=== PATIENT | female | born 1980 | race Caucasian/White ===

== ENCOUNTER 2016-12-26 15:11 | Emergency (ER) | payer SELFPAY ==
[~2016-12-26] VITALS: Ht 152.4 cm; Wt 57.4 kg
[2016-12-26 15:15] VITALS: BP 121/87
== END 2016-12-26 16:28 | disposition home or self-care (01) ==
LOC: ED 16:09
DX: L02.01 Cutaneous abscess of face (principal); Z90.710 Acquired absence of both cervix and uterus
CPT/HCPCS: 10160; 99283

== ENCOUNTER 2017-06-11 13:51 | Emergency (ER) | payer OTHER ==
[~2017-06-11] VITALS: Ht 157.5 cm; Wt 55.4 kg
[2017-06-11] MEDS ORDERED: HYDROmorphone 1 MG/ML, 1ML IM ONE (15:30)
[2017-06-11] MEDS ORDERED: ONDANSETRON ODT 4 MG PO ONE (15:30)
[2017-06-11] MEDS ORDERED: KETOROLAC 30 MG/1 ML IM ONE (15:30)
[2017-06-11] MEDS ORDERED: ONDANSETRON ODT 4 MG ONE (15:38)
[2017-06-11] MEDS ORDERED: KETOROLAC 30 MG/1 ML ONE (15:38)
[2017-06-11] MEDS ORDERED: HYDROmorphone 1 MG/ML, 1ML ONE (15:38)
[2017-06-11 15:51] LABS: HEMATOCRIT 40.4 % (34.6-47.8); HEMOGLOBIN 13.4 g/dL (11.7-16.4); WHITE BLOOD COUNT 6.2 x10^3/uL (3.4-10)
[2017-06-11 16:02] LABS: BLOOD UREA NITROGEN 15 mg/dL (7-18)
[2017-06-11 16:51] VITALS: BP 112/74
== END 2017-06-11 17:28 | disposition home or self-care (01) ==
LOC: ED 17:22
DX: N20.0 Calculus of kidney (principal); Z90.710 Acquired absence of both cervix and uterus
CPT/HCPCS: 36415; 74176; 80048; 81001; 82040; 85025; 87086; 96372; 99285; J1170; J1885; Q0162

== ENCOUNTER 2017-07-07 14:52 | Emergency (ER) | payer MEDICAID, OTHER ==
[~2017-07-07] VITALS: Ht 157.5 cm; Wt 56.2 kg
[2017-07-07 14:55] VITALS: BP 132/90
[2017-07-07] MEDS ORDERED: LIDOCAINE 1%, 20ML ONE (15:11)
[2017-07-07] MEDS ORDERED: LIDOCAINE 1%, 20ML SQ ONE (15:30)
== END 2017-07-07 15:34 | disposition home or self-care (01) ==
LOC: ED 15:28
DX: L03.111 Cellulitis of right axilla (principal); L02.411 Cutaneous abscess of right axilla
CPT/HCPCS: 10060; 99283; J3490